=== PATIENT | female | born 1975 | race Caucasian/White ===

== ENCOUNTER → 2022-02-02 13:49 | Outpatient (CLI) | payer OTHER, SELFPAY ==
--- NOTE | ~2022-02-02 | CT_ITS ---
EXAMINATION: CT IAC/mastoids BI wo con DATE: 02/02/2022 14:23 INDICATION: Left-sided chronic otitis media. TECHNIQUE: Computed tomography (CT) of the temporal bones was performed without intravenous contrast. Automated exposure control and iterative reconstruction technique were employed. The dose-length pro duct was 200.04 mGy-cm. COMPARISON: CT 01/31/2014 FINDINGS: RIGHT TEMPORAL BONE: The internal auditory canal, cochlea, vestibule, semicircular canals, vestibular aqueduct, carotid ca nal, jugular bulb, facial nerve course, ossicles, Prussak space, scutum, tympanic membrane, and exter nal auditory canal are normal. There is a right mastoid effusion. LEFT TEMPORAL BONE: The internal auditory canal, cochlea, vestibule, semicircular canals, vestibular aqueduct, carotid ca nal, jugular bulb, facial nerve course, and ossicles are normal. There is material abutting the tympa phyllis membrane anteriorly and inferiorly measuring up to 3 x 3 x 4 mm. Prussak space is normal. Scutum is normal. There are changes of mastoidectomy. The external auditory canal is normal. IMPRESSION: 1. Material abutting the left tympanic membrane anteriorly and inferiorly measuring up to 3 x 3 x 4 m m. 2. Changes of left mastoidectomy. 3. Right mastoid effusion. Reviewed, dictated and finalized at location A. IMPRESSION: 1. Material abutting the left tympanic membrane anteriorly and inferiorly measu ring up to 3 x 3 x 4 mm. 2. Changes of left mastoidectomy. 3. Right mastoid effusion.
== END ==
PROVIDERS: PCP Family Medicine
DX: H66.92 Otitis media, unspecified, left ear (principal); Z98.890 Other specified postprocedural states; H92.01 Otalgia, right ear
CPT/HCPCS: 70480

== ENCOUNTER → 2023-03-09 16:23 | Outpatient (CLI) | payer OTHER, SELFPAY ==
--- NOTE | ~2023-03-09 | MM_ITS ---
EXAMINATION: MM screening pebbles BI w odessa HISTORY: Screening mammogram TECHNIQUE: Craniocaudal and mediolateral oblique 3-D tomosynthesis images were obtained and synthetic 2-D images were generated. CAD analysis was submitted and interpreted. COMPARISON: 05/16/2019, 03/01/2017, 09/09/2000 bilateral screening mammogram examinations BREAST PARENCHYMAL COMPOSITION: There are scattered areas of fibroglandular density. FINDINGS: There is no evidence of suspicious mass, calcification, or architectural distortion to sugg est malignancy in either breast. There has been no suspicious interval change. IMPRESSION: 1. No mammographic evidence of malignancy. 2. Recommend routine screening mammography in one year. BI-RADS Category 1: Negative Reviewed, dictated and finalized at location A.
== END ==
PROVIDERS: PCP Family Medicine
DX: Z12.31 Encounter for screening mammogram for malignant neoplasm of breast (principal)
CPT/HCPCS: 77063; 77067